=== PATIENT | male | born 1975 | race Caucasian/White ===

== ENCOUNTER 2016-11-12 17:35 | Emergency (ER) | payer MEDICAID, OTHER ==
[2016-11-12 18:24] LABS: MEAN CORPUSCULAR HEMOGLOBIN 30.7 pg (27.0-33.0); MEAN CORPUSCULAR HGB CONC 33.5 g/dl (32.0-36.5); MEAN CORPUSCULAR VOLUME 91.7 fl (80.0-96.0); RED CELL DISTRIBUTION WIDTH 12.1 % (11.5-14.5); WHITE BLOOD COUNT 14.6 K/mm3 (4.0-10.0)
[2016-11-12 18:39] LABS: AMPHETAMINES LEVEL URINE NEGATIVE (NEGATIVE); BENZODIAZEPINES URINE NEGATIVE (NEGATIVE); COCAINE METABOLITE URINE NEGATIVE (NEGATIVE); CONTROL LINE INT CTR LINE PRESENT; METHADONE URINE NEGATIVE (NEGATIVE); OPIATES URINE POSITIVE (NEGATIVE); TRICYCLIC ANTIDEPRESS URINE NEGATIVE (NEGATIVE)
[2016-11-12 18:56] LABS: ALBUMIN 4.4 GM/DL (3.2-5.2); ALBUMIN/GLOBULIN RATIO 1.47 (1.00-1.93); ALKALINE PHOSPHATASE 66 U/L (45-117); ALT/SGPT 20 U/L (12-78); ANION GAP 10 MEQ/L (8-16); AST/SGOT 10 U/L (15-37); BILIRUBIN,DIRECT < 0.1 MG/DL (0.0-0.2); BILIRUBIN,TOTAL 0.3 MG/DL (0.2-1.0); BLOOD UREA NITROGEN 18 MG/DL (7-18); CALCIUM LEVEL 8.6 MG/DL (8.5-10.1); CARBON DIOXIDE LEVEL 29 MEQ/L (21-32); CHLORIDE LEVEL 99 MEQ/L (98-107); CREATININE FOR GFR 1.16 MG/DL (0.70-1.30); GLOMERULAR FILTRATION RATE > 60.0 (>60); GLUCOSE, FASTING 116 MG/DL (70-105); POTASSIUM SERUM 4.1 MEQ/L (3.5-5.1); SODIUM LEVEL 138 MEQ/L (136-145); TOTAL PROTEIN 7.4 GM/DL (6.4-8.2)
[2016-11-12] MEDS ORDERED: QUEtiapine FUMARATE 100 MG TAB As Ordered ONE (20:47)
[2016-11-12] MEDS ORDERED: BACTRIM 160MG/800MG DS TAB As Ordered ONE (20:59)
--- NOTE | 2016-11-12 21:53 | EDDOCDS ---
Physician Documentation [facility] Name: Jewel Weaver Age: 41 yrs Sex: Male : 1975 Arrival Date: 11/12/2016 Time: 17:35 Bed BHU4 Private MD: Disposition: 11/12/16 20:56 Transfer ordered to [facility]. Diagnosis are Major depressive disorder, recurrent, Suicidal ideations. - Reason for transfer: Higher level of care. - Accepting physician is Dr Perez. - Condition is Stable. - Problem is an ongoing problem. - Symptoms have improved. Historical: - Allergies: Tylenol-Codeine #3 (Hives); - Home Meds: 1. Zoloft 50 mg Oral tab 1 tab once daily 2. anxiety med 7.5 mg daily 3. Seroquel 200 mg oral tab - PMHx: insomnia; Kidney stones; Anxiety; - PSHx: Appendectomy; - Social history: Smoking status: Patient uses tobacco products, heavy tobacco smoker. Patient uses street drugs, marijuana, No barriers to communication noted, The patient speaks fluent Lithuanian. - Family history: No immediate family members are acutely ill. - : The pt / caregiver states he / she is not on anticoagulants. Home medication list is obtained from the patient. - Exposure Risk Screening:: None identified. Vital Signs: 11/12 17:54 BP 147 / 100; Pulse 68; Resp 17; Temp 97.2; Pulse Ox 100% ; Weight 63.5 kg / 139.99 mb9 lbs; Height 6 ft. 1 in. (185.42 cm); Pain 0/10; 21:04 BP 147 / 97; Pulse 67; Resp 18; Temp 97.2(O); Pulse Ox 100% on R/A; Pain 0/10; rw1 21:49 BP 149 / 63; Pulse 78; Resp 17; Temp 96.8; Pulse Ox 96% ; mb9 17:54 Body Mass Index 18.47 (63.50 kg, 185.42 cm) mb9 MDM: 17:58 Consult PFS/PSA/Chair Car Driver ordered. sd1 17:58 Consult PFS/PSA/Chair Car Driver: Patient's case requires discussion with on-call sd1 Psychiatrist ordered. 17:58 PSA/PFS to call Nursing Reimbursement Representative, to enter patient data on [place] Safe Act if patient sd1 involuntarily admitted or transferred for SI or HI ordered. 17:58 Confirm accurate psychiatric medication list and times of last dosage ordered. sd1 17:58 Detain Pt Until Medically/PFS Cleared ordered. sd1 17:59 Acetaminophen Level Ordered. EDMS 17:59 Basic Metabolic Profile Ordered. EDMS 17:59 Complete Blood Count Ordered. EDMS 17:59 Drug Eval Toxicology ED Only Ordered. EDMS 17:59 Ethyl Alcohol (ethanol) Ordered. EDMS 17:59 Liver Profile Ordered. EDMS 18:00 Salicylate Level Ordered. EDMS 18:00 Thyroid Stimulating Hormone Ordered. EDMS 18:49 Other: Suicide note was scanned into [employer] and attached to record. jl 18:52 Complete Blood Count Reviewed. sd1 18:52 Drug Eval Toxicology ED Only Reviewed. sd1 18:54 UA Ordered. EDMS 18:54 Urine Culture Ordered. EDMS 19:15 Consult PFS/PSA/Chair Car Driver complete. ac 19:15 Consult PFS/PSA/Chair Car Driver: Patient's case requires discussion with on-call ac Psychiatrist complete. 19:36 PSA/PFS to call Nursing Reimbursement Representative, to enter patient data on [facility] Safe Act if patient jfb involuntarily admitted or transferred for SI or HI complete. 20:45 SEROquel 200 mg PO once ordered. rw1 20:45 Financial registration complete. gjb 20:48 Acetaminophen Level Reviewed. cs11 20:48 Basic Metabolic Profile Reviewed. cs11 20:48 Liver Profile Reviewed. cs11 20:48 Salicylate Level Reviewed. cs11 20:48 Thyroid Stimulating Hormone Reviewed. cs11 20:48 UA Reviewed. cs11 20:48 Ethyl Alcohol (ethanol) Reviewed. cs11 20:50 Trimethoprim-Sulfamethoxazole 160 mg-800 mg (DS) 1 tabs PO once ordered. cs11 21:12 [facility] Payment Agreement was scanned into [employer] and attached to record. gjb 21:15 E Legal paperwork was scanned into [employer] and attached to record. jfb Administered Medications: 20:49 Drug: SEROquel 200 mg Route: PO; rw1 21:47 Follow up: Response: No Adverse Reaction rw1 21:04 Drug: Trimethoprim-Sulfamethoxazole 1 tabs [sulfamethoxazole 800 mg-trimethoprim 160 mg rw1 tablet (1 tabs)] Route: PO; 21:47 Follow up: Response: No Adverse Reaction rw1 Signatures: Dispatcher [employer] Amanda Lemno MD MD sd1 Higinio Amor, PSA PSA Kam Welch, PSA PSA Kai Martínez LPN LPN rw1 Irais Hay, PSA PSA Shakeel Oliva DO DO cs11 Barney BrewsterRN RN mb9 Celia Casas The chart was reviewed and I authenticate all verbal orders and agree with the evaluation and treatment provided.Corrections: (The following items were deleted from the chart) 20:45 17:54 Home Meds: Seroquel 100 mg Oral tab nightly; mb9 rw1 Attachments: 21:12 [facility] Payment Agreement jordan MTDD
--- NOTE | 2016-11-12 21:53 | EDDOCDS ---
Nurse's Notes [facility] Name: Jewel Weaver Age: 41 yrs Sex: Male : 1975 Arrival Date: 11/12/2016 Time: 17:35 Bed [facility] Private MD: Diagnosis: Major depressive disorder, recurrent;Suicidal ideations Presentation: 11/12 17:50 Presenting complaint: Patient states: "I've been really depressed lately. I took a mb9 bunch of my dads luis last week and today I went and picked up my mom after she had surgery and my dad and I got into it about the pills. So I went in the garage and tied up a rope. The plasma table operator got involved because I put a message on facebook and one of my friends came and found me". [facility] reports pt vomited x1 en route. pt reports a history of kidney stones and that he has been vomiting all day. Mental Health Triage Level: Level 2: The patient displays active suicidal ideations. The patient was brought to the ED for evaluation because of a legal pickup order. Adult Sepsis Screening: The patient does not have new or worsening altered mentation. Patient's respiratory rate is less than 22. Systolic blood pressure is greater than 100. Patient has a qSOFA score of 0- Negative Sepsis Screen. Suicide/Homicide risk assessment- The patient admits to and/or has been reported to be having suicidal ideations. Status: Patient is not a nursing services manager or dependent. Transition of care: patient was not received from another setting of care. 17:50 Acuity: EUN Level 3 mb9 17:50 Method Of Arrival: Police Car mb9 Triage Assessment: 17:54 General: Appears in no apparent distress, Behavior is appropriate for age, cooperative. mb9 Pain: Denies pain. HIV screening NA for this visit Offered previously. The patient is triaged at the bedside. See Assessment in Nurses Notes section of ED record. Neurological: Level of Consciousness is awake, alert, Oriented to person, place, time. Respiratory: Airway is patent Respiratory effort is even, unlabored. GI: Reports nausea. Derm: Bruising that is dark purple, on right wrist and left wrist pt appears to have bruising and indentations to bilateral wrists. pt states, "That must be from the cuffs". . Historical: - Allergies: Tylenol-Codeine #3 (Hives); - Home Meds: 1. Zoloft 50 mg Oral tab 1 tab once daily 2. anxiety med 7.5 mg daily 3. Seroquel 200 mg oral tab - PMHx: insomnia; Kidney stones; Anxiety; - PSHx: Appendectomy; - Social history: Smoking status: Patient uses tobacco products, heavy tobacco smoker. Patient uses street drugs, marijuana, No barriers to communication noted, The patient speaks fluent Upper Sorbian. - Family history: No immediate family members are acutely ill. - : The pt / caregiver states he / she is not on anticoagulants. Home medication list is obtained from the patient. - Exposure Risk Screening:: None identified. Screenin:49 Screening information is obtained from the patient. Fall risk: No risks identified. mb9 Assistance ADL's: requires no assistance with activities of daily living. Abuse/DV Screen: The patient / caregiver reports he/she is: not in a situation that causes fear, pain or injury. Nutritional screening: No deficits noted. Advance Directives: There is no active DNR order. home support is adequate. Assessment: 20:00 General: Appears in no apparent distress, comfortable, Behavior is appropriate for age, rw1 cooperative, pleasant. Pain: Denies pain. Neurological: Level of Consciousness is awake, alert, obeys commands, Oriented to person, place, time. Respiratory: Airway is patent Respiratory effort is even, unlabored. Derm: Skin is pink, warm & dry. normal. 21:04 Reassessment: Patient appears in no apparent distress at this time. Patient denies pain rw1 at this time. awake resting on stretcher, safety maintained will monitor.. 21:49 General: Appears comfortable, Behavior is cooperative. Respiratory: Airway is patent mb9 Respiratory effort is even, unlabored. Mental Health Eval: 18:37 Mental health consult is initiated at 18:15. Status: The patient is not a nursing services manager or dependent. [facility] Behavioral Health: The patient is not an established patient of [facility] Behavioral Health. Referral Information: Evaluation referral is generated by a police agency: [employer] on . The patient was referred for evaluation because Pt wrote facebook post stating "tonight's the night I love you all goodbye for now, see everyone on the other side". Pt was found in the garage by his father with a rope tied to a car lift and a chair next to it in the process of tying a loop in the rope. Subjective: The patients chief complaint is I've been really depressed, probably since my brother of an MS in 2007. I moved back here from [place] a few months after. was working until last year but it was 110 miles round trip. 'm 41, unemployed and live with my parents, what's not to be depressed about? . Delusions are denied. Patient's mood is depressed, Hallucinations are denied. Mental Health history: abusing prescription drugs. Mental Health Admissions: None. Current Outpatient Mental Health Services: None. Current living environment is The patient currently lives with his / her parents, . Patient presents to Emergency Department with the following symptoms within the past 2 weeks: depressed mood, drug abuse. Substance abuse: Patient uses benzodiazepines 2-4 xanax daily that he takes from his parents. Patient uses marijuana Patient uses opiates Type Used: percocet 2 today. Mental status exam: Patients appearance is appropriate, Patient's behavior is cooperative, Speech is normal. Affect is appropriate. Mood is depressed. Hallucinations are denied. Appetite is normal. Memory is good. Energy level is normal. Content of thought is normal. Thought process is intact. Cognitive level is oriented to person, place, time and situation Patient's insight is poor. Judgement is poor. Rapport with interviewer is good. Suicidal Ideation present with a plan to kill self by hanging. Homicidal ideation is not present. Disposition: Medically cleared for disposition by Amanda Busby MD. [facility] Admission Criteria: The patient has had a suicide attempt in the recent past. pt had rope around vehicle lift, was in process of tying loop when father entered garage. 19:08 Legal Status: Patient's legal status will be [employer] [facility] [employer] admission: ac 9.37. DSM-V Differential Diagnosis: Unspecified Depressive Disorder (F32.9). Narrative: Pt was brought to ED by [facility] after sending facebook post saying "goodbye for now", was found by father in garage with rope hanging from vehicle lift. Pt states he has been stealing xanax from his parents, went through 60 pills of his father's in 1-2 weeks. Pt states his mother came home today following an unknown cardiac problem, he and father got into argument. Pt states at one point his father said "You aren't my son" at which time pt went to garage and tied rope. Pt states his brother in 2007 and he has been depressed since then. Pt admits that he was going to kill himself, is unable to CFS at this time. Pt denies ETOH use, no AH/VH or delusions. Pt reports chronic insomnia, appetite is unchanged, concentration is okay. Pt states preferred pharmacy is: [facility]. 19:30 Awaiting: Hospital acceptance for transfer. Chart has been faxed to [facility] for review. jl 21:08 Narrative: PT has been accepted to [facility] will call with pickling drum operator time. [facility] Vital Signs: 17:54 BP 147 / 100; Pulse 68; Resp 17; Temp 97.2; Pulse Ox 100% ; Weight 63.5 kg; Height 6 mb9 ft. 1 in. (185.42 cm); Pain 0/10; 21:04 BP 147 / 97; Pulse 67; Resp 18; Temp 97.2(O); Pulse Ox 100% on R/A; Pain 0/10; rw1 21:49 BP 149 / 63; Pulse 78; Resp 17; Temp 96.8; Pulse Ox 96% ; mb9 17:54 Body Mass Index 18.47 (63.50 kg, 185.42 cm) 9 Vitals: 17:54 Log In time N/A- police car arrival. mb9 ED Course: 17:36 Patient visited by Shawna Hill, Reg. gb 17:36 Patient moved to Waiting 17:49 Patient moved to [address] 17:49 Pt greeted and oriented to ED. Patient advised of names of staff involved in care, dpm location of call bernabe, wait times and NPO status. Patient has correct armband on for positive identification. Placed in psych safe attire. Security observing. Property removed, inventory done, secured in belongings bag- placed in locked locker. Placed in locker 4. Psych Safety Check: Location: Psych Room. Visual Assessment: Cooperative. 17:50 Amanda Busby MD is Attending Physician. sd1 17:50 Patient visited by Amanda Busby MD. sd1 17:53 Triage Initiated mb9 17:57 Patient visited by Shashank Luu. dpm 18:18 Patient visited by Shashank Luu. dpm 18:37 Patient visited by Shashank Luu. dpm 18:49 Other: Suicide note was scanned into [employer] and attached to record. jl 18:53 Patient visited by Shashank Luu. dpm 19:05 Kai Jaramillo LPN is Primary Nurse. rw1 19:07 Patient visited by Shashank Luu. dpm 19:14 Attending Physician role handed off by Amanda Busby MD cs11 19:14 Shakeel Bello DO is Attending Physician. cs11 19:28 Patient visited by Pranay Okeefe. tr 19:58 Patient visited by Pranay Okeefe. tr 20:16 Patient visited by Pranay Okeefe. tr 20:32 Patient visited by Pranay Okeefe. tr 20:46 Patient visited by Pranay Okeefe. tr 21:01 Patient visited by Pranay Okeefe. tr 21:12 [facility] Payment Agreement was scanned into [employer] and attached to record. gjb 21:15 Patient visited by Pranay Okeefe. tr 21:15 [facility] Legal paperwork was scanned into [employer] and attached to record. jfb 21:47 Patient visited by Pranay Okeefe. tr 21:49 The patient / caregiver is instructed regarding the plan of care and ED course. mb9 21:49 No IV's were initiated during this patient's visit. No procedures done that require mb9 assistance. Administered Medications: 20:49 Drug: SEROquel 200 mg Route: PO; rw1 21:47 Follow up: Response: No Adverse Reaction rw1 21:04 Drug: Trimethoprim-Sulfamethoxazole 1 tabs [sulfamethoxazole 800 mg-trimethoprim 160 mg rw tablet (1 tabs)] Route: PO; 21:47 Follow up: Response: No Adverse Reaction rw Attachments: 21:15 [facility] Legal paperwork jfb Order Results: Lab Order: Acetaminophen Level; SPEC'M 11/12/16 18:10 Test: ACETAMINOPHEN LEVEL; Value: < 2.0; Range: 10.0-30.0; Abnormal: Below low normal; Units: UG/ML; Status: F Lab Order: Basic Metabolic Profile; [facility] 11/12/16 18:10 Test: GLUCOSE, FASTING; Value: 116; Range: 70-105; Abnormal: Above high normal; Units: MG/DL; Status: F Test: BLOOD UREA NITROGEN; Value: 18; Range: 7-18; Units: MG/DL; Status: F Test: CREATININE FOR GFR; Value: 1.16; Range: 0.70-1.30; Units: MG/DL; Status: F Test: GLOMERULAR FILTRATION RATE; Value: > 60.0; Range: >60; Status: F Test: SODIUM LEVEL; Value: 138; Range: 136-145; Units: MEQ/L; Status: F Test: POTASSIUM SERUM; Value: 4.1; Range: 3.5-5.1; Units: MEQ/L; Status: F Test: CHLORIDE LEVEL; Value: 99; Range: 98-107; Units: MEQ/L; Status: F Test: CARBON DIOXIDE LEVEL; Value: 29; Range: 21-32; Units: MEQ/L; Status: F Test: ANION GAP; Value: 10; Range: 8-16; Units: MEQ/L; Status: F Test: CALCIUM LEVEL; Value: 8.6; Range: 8.5-10.1; Units: MG/DL; Status: F Test Note: ; Units are mL/min/1.73 m2 Chronic Kidney Disease Staging per NKF: Stage I & II GFR >=60 Normal to Mildly Decreased Stage III GFR 30-59 Moderately Decreased Stage IV GFR 15-29 Severely Decreased Stage V GFR <15 Very Little GFR Left ESRD GFR <15 on CUSTOMER ORDER CLERK Lab Order: Complete Blood Count; [facility] 11/12/16 18:10 Test: WHITE BLOOD COUNT; Value: 14.6; Range: 4.0-10.0; Abnormal: Above high normal; Units: K/mm3; Status: F Test: RED BLOOD COUNT; Value: 4.81; Range: 4.30-6.10; Units: M/mm3; Status: F Test: HEMOGLOBIN; Value: 14.8; Range: 14.0-18.0; Units: g/dl; Status: F Test: HEMATOCRIT; Value: 44.1; Range: 42.0-52.0; Units: %; Status: F Test: MEAN CORPUSCULAR VOLUME; Value: 91.7; Range: 80.0-96.0; Units: fl; Status: F Test: MEAN CORPUSCULAR HEMOGLOBIN; Value: 30.7; Range: 27.0-33.0; Units: pg; Status: F Test: MEAN CORPUSCULAR HGB CONC; Value: 33.5; Range: 32.0-36.5; Units: g/dl; Status: F Test: RED CELL DISTRIBUTION WIDTH; Value: 12.1; Range: 11.5-14.5; Units: %; Status: F Test: PLATELET COUNT, AUTOMATED; Value: 240; Range: 150-450; Units: k/mm3; Status: F Lab Order: Drug Eval Toxicology ED Only; SPEC'M 11/12/16 18:12 Test: AMPHETAMINES LEVEL URINE; Value: NEGATIVE; Range: NEGATIVE; Status: F Test: BARBITURATES URINE; Value: NEGATIVE; Range: NEGATIVE; Status: F Test: BENZODIAZEPINES URINE; Value: NEGATIVE; Range: NEGATIVE; Status: F Test: CANNABINOIDS URINE; Value: POSITIVE; Range: NEGATIVE; Abnormal: Above high normal; Status: F Test: COCAINE METABOLITE URINE; Value: NEGATIVE; Range: NEGATIVE; Status: F Test: METHADONE URINE; Value: NEGATIVE; Range: NEGATIVE; Status: F Test: OPIATES URINE; Value: POSITIVE; Range: NEGATIVE; Abnormal: Above high normal; Status: F Test: TRICYCLIC ANTIDEPRESS URINE; Value: NEGATIVE; Range: NEGATIVE; Status: F Test Note: ; FALSE POSITIVE RESULTS CAN BE CAUSED BY THE USE OF PANTOPRAZOLE (PROTONIX). Lab Order: Ethyl Alcohol (ethanol); SPEC'M 11/12/16 18:10 Test: ETHYL ALCOHOL (ETHANOL); Value: < 0.003; Range: 0.000-0.010; Units: %; Status: F Lab Order: Liver Profile; SPEC'M 11/12/16 18:10 Test: AST/SGOT; Value: 10; Range: 15-37; Abnormal: Below low normal; Units: U/L; Status: F Test: ALT/SGPT; Value: 20; Range: 12-78; Units: U/L; Status: F Test: ALKALINE PHOSPHATASE; Value: 66; Range: 45-117; Units: U/L; Status: F Test: BILIRUBIN,TOTAL; Value: 0.3; Range: 0.2-1.0; Units: MG/DL; Status: F Test: BILIRUBIN,DIRECT; Value: < 0.1; Range: 0.0-0.2; Units: MG/DL; Status: F Test: TOTAL PROTEIN; Value: 7.4; Range: 6.4-8.2; Units: GM/DL; Status: F Test: ALBUMIN; Value: 4.4; Range: 3.2-5.2; Units: GM/DL; Status: F Test: ALBUMIN/GLOBULIN RATIO; Value: 1.47; Range: 1.00-1.93; Status: F Lab Order: Salicylate Level; SPEC'M 11/12/16 18:10 Test: SALICYLATE LEVEL; Value: < 1.7; Range: 5.0-30.0; Abnormal: Below low normal; Units: MG/DL; Status: F Lab Order: Thyroid Stimulating Hormone; SPEC'M 11/12/16 18:10 Test: THYROID STIMULATING HORMONE; Value: 4.780; Range: 0.358-3.740; Abnormal: Above high normal; Units: uIU/ML; Status: F Lab Order: UA; SPEC'M 11/12/16 18:10 Test: APPEARANCE, URINE; Value: HAZY; Range: CLEAR; Status: F Test: COLOR, URINE; Value: YELLOW; Range: YELLOW; Status: F Test: PH,URINE; Value: 5.0; Range: 5.0-9.0; Units: UNITS; Status: F Test: SPECIFIC GRAVITY URINE AUTO; Value: 1.021; Range: 1.002-1.035; Status: F Test: PROTEIN, URINE AUTO; Value: NEGATIVE; Range: NEGATIVE; Units: mg/dL; Status: F Test: GLUCOSE, URINE (UA) AUTO; Value: NEGATIVE; Range: NEGATIVE; Units: mg/dL; Status: F Test: KETONE, URINE AUTO; Value: TRACE; Range: NEGATIVE; Abnormal: Above high normal; Units: mg/dL; Status: F Test: UROBILINOGEN, URINE AUTO; Value: 0.2; Range: 0.0-2.0; Units: mg/dL; Status: F Test: BILIRUBIN, URINE AUTO; Value: NEGATIVE; Range: NEGATIVE; Status: F Test: NITRITE, URINE AUTO; Value: NEGATIVE; Range: NEGATIVE; Status: F Test: LEUKOCYTE ESTERASE, URINE AUTO; Value: NEGATIVE; Range: NEGATIVE; Status: F Test: BLOOD, URINE BLOOD; Value: NEGATIVE; Range: NEGATIVE; Status: F Test: WBC, URINE AUTO; Value: 6; Range: 0-3; Abnormal: Above high normal; Units: /HPF; Status: F Test: RBC, URINE AUTO; Value: 2; Range: 0-3; Units: /HPF; Status: F Test: BACTERIA, URINE AUTO; Value: NEGATIVE; Range: NEGATIVE; Status: F Test: SQUAMOUS EPITHELIAL CELL UR AU; Value: 0; Range: 0-6; Units: /HPF; Status: F Test: MUCUS, URINE; Value: SMALL; Range: NEGATIVE; Status: F Test: HYALINE CAST, URINE AUTO; Value: 0; Range: 0-1; Units: /LPF; Status: F Test: URIC ACID CRYSTALS; Value: MODERATE; Range: NONE; Status: F Outcome: 20:56 ER care complete, transfer ordered by Provider. cs11 21:02 Admission hand-off: Report called to Lori Bey RN. All information relayed. All mb9 questions answered. 21:49 Discharge Assessment: Patient awake, alert and oriented x 3. No cognitive and/or mb9 functional deficits noted. Patient verbalized understanding of disposition instructions. patient administered narcotics - no. The following High Risk Discharge criteria are identified: None. Transferred to [facility]. by EMS ground [facility] ambulance report to accompanying personnel Genevieve Adamson. Condition: good Condition: stable Condition: improved. No special radiology studies were completed. 21:52 Patient left the ED. mb9 Signatures: Amanda Busby MD MD sd1 Higinio Amor, PSA PSA Kam Welch, PSA PSA Shawna Muniz, Anil Reg teofilo Okeefe, Kai Rojo LPN CLAY TRANSPORTER rw1 Irais Hay, PSA PSA jfShashank Brown dpShakeel Brown DO DO cs11 Barney Brewster RN RN mb9 Celia Casas Corrections: (The following items were deleted from the chart) 20:45 17:54 Home Meds: Seroquel 100 mg Oral tab nightly; mb9 rw1 MTDD
--- NOTE | 2016-11-14 22:53 | EDDOCDS ---
Physician Documentation [facility] Name: Jewel Weaver Age: 41 yrs Sex: Male : 1975 Arrival Date: 11/12/2016 Time: 17:35 Bed [id number] Private MD: Disposition: 11/12/16 20:56 Transfer ordered to [facility]. Diagnosis are Major depressive disorder, recurrent, Suicidal ideations. - Reason for transfer: Higher level of care. - Accepting physician is Dr Perez. - Condition is Stable. - Problem is an ongoing problem. - Symptoms have improved. Historical: - Allergies: Tylenol-Codeine #3 (Hives); - Home Meds: 1. Zoloft 50 mg Oral tab 1 tab once daily 2. anxiety med 7.5 mg daily 3. Seroquel 200 mg oral tab - PMHx: insomnia; Kidney stones; Anxiety; - PSHx: Appendectomy; - Social history: Smoking status: Patient uses tobacco products, heavy tobacco smoker. Patient uses street drugs, marijuana, No barriers to communication noted, The patient speaks fluent East Timorese. - Family history: No immediate family members are acutely ill. - : The pt / caregiver states he / she is not on anticoagulants. Home medication list is obtained from the patient. - Exposure Risk Screening:: None identified. Vital Signs: 11/12 17:54 BP 147 / 100; Pulse 68; Resp 17; Temp 97.2; Pulse Ox 100% ; Weight 63.5 kg / 139.99 mb9 lbs; Height 6 ft. 1 in. (185.42 cm); Pain 0/10; 21:04 BP 147 / 97; Pulse 67; Resp 18; Temp 97.2(O); Pulse Ox 100% on R/A; Pain 0/10; rw1 21:49 BP 149 / 63; Pulse 78; Resp 17; Temp 96.8; Pulse Ox 96% ; mb9 17:54 Body Mass Index 18.47 (63.50 kg, 185.42 cm) mb9 MDM: 17:58 Consult PFS/PSA/Contract Processor ordered. sd1 17:58 Consult PFS/PSA/Contract Processor: Patient's case requires discussion with on-call sd1 Psychiatrist ordered. 17:58 PSA/PFS to call Nursing Grain Miller Helper, to enter patient data on [place] Safe Act if patient sd1 involuntarily admitted or transferred for SI or HI ordered. 17:58 Confirm accurate psychiatric medication list and times of last dosage ordered. sd1 17:58 Detain Pt Until Medically/PFS Cleared ordered. sd1 17:59 Acetaminophen Level Ordered. EDMS 17:59 Basic Metabolic Profile Ordered. EDMS 17:59 Complete Blood Count Ordered. EDMS 17:59 Drug Eval Toxicology ED Only Ordered. EDMS 17:59 Ethyl Alcohol (ethanol) Ordered. EDMS 17:59 Liver Profile Ordered. EDMS 18:00 Salicylate Level Ordered. EDMS 18:00 Thyroid Stimulating Hormone Ordered. EDMS 18:49 Other: Suicide note was scanned into [employer] and attached to record. jl 18:52 Complete Blood Count Reviewed. sd1 18:52 Drug Eval Toxicology ED Only Reviewed. sd1 18:54 UA Ordered. EDMS 18:54 Urine Culture Ordered. EDMS 19:15 Consult PFS/PSA/Contract Processor complete. ac 19:15 Consult PFS/PSA/Contract Processor: Patient's case requires discussion with on-call ac Psychiatrist complete. 19:36 PSA/PFS to call Nursing Grain Miller Helper, to enter patient data on [facility] Safe Act if patient jfb involuntarily admitted or transferred for SI or HI complete. 20:45 SEROquel 200 mg PO once ordered. rw1 20:45 Financial registration complete. gjb 20:48 Acetaminophen Level Reviewed. cs11 20:48 Basic Metabolic Profile Reviewed. cs11 20:48 Liver Profile Reviewed. cs11 20:48 Salicylate Level Reviewed. cs11 20:48 Thyroid Stimulating Hormone Reviewed. cs11 20:48 UA Reviewed. cs11 20:48 Ethyl Alcohol (ethanol) Reviewed. cs11 20:50 Trimethoprim-Sulfamethoxazole 160 mg-800 mg (DS) 1 tabs PO once ordered. cs11 21:12 [facility] Payment Agreement was scanned into [employer] and attached to record. gjb 21:15 [facility] Legal paperwork was scanned into [employer] and attached to record. jfb 11/13 10:59 T-Sheet-- Draft Copy was scanned into [employer] and attached to record. gb Administered Medications: 11/12 20:49 Drug: SEROquel 200 mg Route: PO; rw1 21:47 Follow up: Response: No Adverse Reaction rw1 21:04 Drug: Trimethoprim-Sulfamethoxazole 1 tabs [sulfamethoxazole 800 mg-trimethoprim 160 mg rw1 tablet (1 tabs)] Route: PO; 21:47 Follow up: Response: No Adverse Reaction rw1 Signatures: Dispatcher [employer] Amanda Lemon MD MD sd1 Higinio Amor, PSA PSA Kam Welch, PSA PSA Shawna Muniz, Reg Reg gb Kai Jaramillo,PROSPECT MANAGER PROSPECT MANAGER rw1 Irais Hay, PSA PSA jfShakeel Guidry, DO cs11 Barney BrewsterRN RN mb9 Celia Casas The chart was reviewed and I authenticate all verbal orders and agree with the evaluation and treatment provided.Corrections: (The following items were deleted from the chart) 20:45 17:54 Home Meds: Seroquel 100 mg Oral tab nightly; mb9 rw1 Attachments: 21:12 [facility] Payment Agreement gjb 11/13 10:59 T-Sheet-- Draft Copy Chart Complete MTDD
--- NOTE | 2016-11-14 22:53 | EDDOCDS ---
Nurse's Notes [facility] Name: Jewel Weaver Age: 41 yrs Sex: Male : 1975 Arrival Date: 11/12/2016 Time: 17:35 Bed [facility] Private MD: Diagnosis: Major depressive disorder, recurrent;Suicidal ideations Presentation: 11/12 17:50 Presenting complaint: Patient states: "I've been really depressed lately. I took a mb9 bunch of my dads luis last week and today I went and picked up my mom after she had surgery and my dad and I got into it about the pills. So I went in the garage and tied up a rope. The technologies division chair got involved because I put a message on facebook and one of my friends came and found me". [facility] reports pt vomited x1 en route. pt reports a history of kidney stones and that he has been vomiting all day. Mental Health Triage Level: Level 2: The patient displays active suicidal ideations. The patient was brought to the ED for evaluation because of a legal pickup order. Adult Sepsis Screening: The patient does not have new or worsening altered mentation. Patient's respiratory rate is less than 22. Systolic blood pressure is greater than 100. Patient has a qSOFA score of 0- Negative Sepsis Screen. Suicide/Homicide risk assessment- The patient admits to and/or has been reported to be having suicidal ideations. Status: Patient is not a assistant food service manager or dependent. Transition of care: patient was not received from another setting of care. 17:50 Acuity: EUN Level 3 mb9 17:50 Method Of Arrival: Police Car mb9 Triage Assessment: 17:54 General: Appears in no apparent distress, Behavior is appropriate for age, cooperative. mb9 Pain: Denies pain. HIV screening NA for this visit Offered previously. The patient is triaged at the bedside. See Assessment in Nurses Notes section of ED record. Neurological: Level of Consciousness is awake, alert, Oriented to person, place, time. Respiratory: Airway is patent Respiratory effort is even, unlabored. GI: Reports nausea. Derm: Bruising that is dark purple, on right wrist and left wrist pt appears to have bruising and indentations to bilateral wrists. pt states, "That must be from the cuffs". . Historical: - Allergies: Tylenol-Codeine #3 (Hives); - Home Meds: 1. Zoloft 50 mg Oral tab 1 tab once daily 2. anxiety med 7.5 mg daily 3. Seroquel 200 mg oral tab - PMHx: insomnia; Kidney stones; Anxiety; - PSHx: Appendectomy; - Social history: Smoking status: Patient uses tobacco products, heavy tobacco smoker. Patient uses street drugs, marijuana, No barriers to communication noted, The patient speaks fluent Chinese. - Family history: No immediate family members are acutely ill. - : The pt / caregiver states he / she is not on anticoagulants. Home medication list is obtained from the patient. - Exposure Risk Screening:: None identified. Screenin:49 Screening information is obtained from the patient. Fall risk: No risks identified. mb9 Assistance ADL's: requires no assistance with activities of daily living. Abuse/DV Screen: The patient / caregiver reports he/she is: not in a situation that causes fear, pain or injury. Nutritional screening: No deficits noted. Advance Directives: There is no active DNR order. home support is adequate. Assessment: 20:00 General: Appears in no apparent distress, comfortable, Behavior is appropriate for age, rw1 cooperative, pleasant. Pain: Denies pain. Neurological: Level of Consciousness is awake, alert, obeys commands, Oriented to person, place, time. Respiratory: Airway is patent Respiratory effort is even, unlabored. Derm: Skin is pink, warm & dry. normal. 21:04 Reassessment: Patient appears in no apparent distress at this time. Patient denies pain rw1 at this time. awake resting on stretcher, safety maintained will monitor.. 21:49 General: Appears comfortable, Behavior is cooperative. Respiratory: Airway is patent mb9 Respiratory effort is even, unlabored. Mental Health Eval: 18:37 Mental health consult is initiated at 18:15. Status: The patient is not a assistant food service manager or dependent. [facility] Behavioral Health: The patient is not an established patient of [facility] Behavioral Health. Referral Information: Evaluation referral is generated by a police agency: [employer] on . The patient was referred for evaluation because Pt wrote facebook post stating "tonight's the night I love you all goodbye for now, see everyone on the other side". Pt was found in the garage by his father with a rope tied to a car lift and a chair next to it in the process of tying a loop in the rope. Subjective: The patients chief complaint is I've been really depressed, probably since my brother of an OR in 2007. I moved back here from [place] a few months after. was working until last year but it was 110 miles round trip. 'm 41, unemployed and live with my parents, what's not to be depressed about? . Delusions are denied. Patient's mood is depressed, Hallucinations are denied. Mental Health history: abusing prescription drugs. Mental Health Admissions: None. Current Outpatient Mental Health Services: None. Current living environment is The patient currently lives with his / her parents, . Patient presents to Emergency Department with the following symptoms within the past 2 weeks: depressed mood, drug abuse. Substance abuse: Patient uses benzodiazepines 2-4 xanax daily that he takes from his parents. Patient uses marijuana Patient uses opiates Type Used: percocet 2 today. Mental status exam: Patients appearance is appropriate, Patient's behavior is cooperative, Speech is normal. Affect is appropriate. Mood is depressed. Hallucinations are denied. Appetite is normal. Memory is good. Energy level is normal. Content of thought is normal. Thought process is intact. Cognitive level is oriented to person, place, time and situation Patient's insight is poor. Judgement is poor. Rapport with interviewer is good. Suicidal Ideation present with a plan to kill self by hanging. Homicidal ideation is not present. Disposition: Medically cleared for disposition by Amanda Busby MD. [facility] Admission Criteria: The patient has had a suicide attempt in the recent past. pt had rope around vehicle lift, was in process of tying loop when father entered garage. 19:08 Legal Status: Patient's legal status will be [employer] admission: ac 9.37. DSM-V Differential Diagnosis: Unspecified Depressive Disorder (F32.9). Narrative: Pt was brought to ED by [facility] after sending facebook post saying "goodbye for now", was found by father in garage with rope hanging from vehicle lift. Pt states he has been stealing xanax from his parents, went through 60 pills of his father's in 1-2 weeks. Pt states his mother came home today following an unknown cardiac problem, he and father got into argument. Pt states at one point his father said "You aren't my son" at which time pt went to garage and tied rope. Pt states his brother in 2007 and he has been depressed since then. Pt admits that he was going to kill himself, is unable to CFS at this time. Pt denies ETOH use, no AH/VH or delusions. Pt reports chronic insomnia, appetite is unchanged, concentration is okay. Pt states preferred pharmacy is: [facility]. 19:30 Awaiting: Hospital acceptance for transfer. Chart has been faxed to PSYCHIATRIC for review. jl 21:08 Narrative: PT has been accepted to [facility] will call with apple picker time. [facility] Vital Signs: 17:54 BP 147 / 100; Pulse 68; Resp 17; Temp 97.2; Pulse Ox 100% ; Weight 63.5 kg; Height 6 mb9 ft. 1 in. (185.42 cm); Pain 0/10; 21:04 BP 147 / 97; Pulse 67; Resp 18; Temp 97.2(O); Pulse Ox 100% on R/A; Pain 0/10; rw1 21:49 BP 149 / 63; Pulse 78; Resp 17; Temp 96.8; Pulse Ox 96% ; mb9 17:54 Body Mass Index 18.47 (63.50 kg, 185.42 cm) 9 Vitals: 17:54 Log In time N/A- police car arrival. mb9 ED Course: 17:36 Patient visited by Shawna Hill, Reg. gb 17:36 Patient moved to Waiting 17:49 Patient moved to [address] 17:49 Pt greeted and oriented to ED. Patient advised of names of staff involved in care, dpm location of call bernabe, wait times and NPO status. Patient has correct armband on for positive identification. Placed in psych safe attire. Security observing. Property removed, inventory done, secured in belongings bag- placed in locked locker. Placed in locker 4. Psych Safety Check: Location: Psych Room. Visual Assessment: Cooperative. 17:50 Amanda Busby MD is Attending Physician. sd1 17:50 Patient visited by Amanda Busby MD. sd1 17:53 Triage Initiated mb9 17:57 Patient visited by Shashank Luu. dpm 18:18 Patient visited by Shashank Luu. dpm 18:37 Patient visited by Shashank Luu. dpm 18:49 Other: Suicide note was scanned into [email or web address] and attached to record. jl 18:53 Patient visited by Shashank Luu. dpm 19:05 Kai Jaramillo LPN is Primary Nurse. rw1 19:07 Patient visited by Shashank Luu. dpm 19:14 Attending Physician role handed off by Amanda Busby MD cs11 19:14 Shakeel Bello DO is Attending Physician. cs11 19:28 Patient visited by Pranay Okeefe. tr 19:58 Patient visited by Pranay Okeefe. tr 20:16 Patient visited by Pranay Okeefe. tr 20:32 Patient visited by Pranay Okeefe. tr 20:46 Patient visited by Pranay Okeefe. tr 21:01 Patient visited by Pranay Okeefe. tr 21:12 [facility] Payment Agreement was scanned into [email or web address] and attached to record. gjb 21:15 Patient visited by Pranay Okeefe. tr 21:15 [facility] Legal paperwork was scanned into [email or web address] and attached to record. jfb 21:47 Patient visited by Pranay Okeefe. tr 21:49 The patient / caregiver is instructed regarding the plan of care and ED course. mb9 21:49 No IV's were initiated during this patient's visit. No procedures done that require mb9 assistance. 11/13 10:59 T-Sheet-- Draft Copy was scanned into [email or web address] and attached to record. gb Administered Medications: 11/12 20:49 Drug: SEROquel 200 mg Route: PO; rw1 21:47 Follow up: Response: No Adverse Reaction rw1 21:04 Drug: Trimethoprim-Sulfamethoxazole 1 tabs [sulfamethoxazole 800 mg-trimethoprim 160 mg rw1 tablet (1 tabs)] Route: PO; 21:47 Follow up: Response: No Adverse Reaction rw1 Attachments: 21:15 [facility] Legal paperwork jfb Order Results: Lab Order: Acetaminophen Level; SPEC'M 11/12/16 18:10 Test: ACETAMINOPHEN LEVEL; Value: < 2.0; Range: 10.0-30.0; Abnormal: Below low normal; Units: UG/ML; Status: F Lab Order: Basic Metabolic Profile; [facility] 11/12/16 18:10 Test: GLUCOSE, FASTING; Value: 116; Range: 70-105; Abnormal: Above high normal; Units: MG/DL; Status: F Test: BLOOD UREA NITROGEN; Value: 18; Range: 7-18; Units: MG/DL; Status: F Test: CREATININE FOR GFR; Value: 1.16; Range: 0.70-1.30; Units: MG/DL; Status: F Test: GLOMERULAR FILTRATION RATE; Value: > 60.0; Range: >60; Status: F Test: SODIUM LEVEL; Value: 138; Range: 136-145; Units: MEQ/L; Status: F Test: POTASSIUM SERUM; Value: 4.1; Range: 3.5-5.1; Units: MEQ/L; Status: F Test: CHLORIDE LEVEL; Value: 99; Range: 98-107; Units: MEQ/L; Status: F Test: CARBON DIOXIDE LEVEL; Value: 29; Range: 21-32; Units: MEQ/L; Status: F Test: ANION GAP; Value: 10; Range: 8-16; Units: MEQ/L; Status: F Test: CALCIUM LEVEL; Value: 8.6; Range: 8.5-10.1; Units: MG/DL; Status: F Test Note: ; Units are mL/min/1.73 m2 Chronic Kidney Disease Staging per NKF: Stage I & II GFR >=60 Normal to Mildly Decreased Stage III GFR 30-59 Moderately Decreased Stage IV GFR 15-29 Severely Decreased Stage V GFR <15 Very Little GFR Left ESRD GFR <15 on [employer] Lab Order: Complete Blood Count; [facility] 18:10 Test: WHITE BLOOD COUNT; Value: 14.6; Range: 4.0-10.0; Abnormal: Above high normal; Units: K/mm3; Status: F Test: RED BLOOD COUNT; Value: 4.81; Range: 4.30-6.10; Units: M/mm3; Status: F Test: HEMOGLOBIN; Value: 14.8; Range: 14.0-18.0; Units: g/dl; Status: F Test: HEMATOCRIT; Value: 44.1; Range: 42.0-52.0; Units: %; Status: F Test: MEAN CORPUSCULAR VOLUME; Value: 91.7; Range: 80.0-96.0; Units: fl; Status: F Test: MEAN CORPUSCULAR HEMOGLOBIN; Value: 30.7; Range: 27.0-33.0; Units: pg; Status: F Test: MEAN CORPUSCULAR HGB CONC; Value: 33.5; Range: 32.0-36.5; Units: g/dl; Status: F Test: RED CELL DISTRIBUTION WIDTH; Value: 12.1; Range: 11.5-14.5; Units: %; Status: F Test: PLATELET COUNT, AUTOMATED; Value: 240; Range: 150-450; Units: k/mm3; Status: F Lab Order: Drug Eval Toxicology ED Only; SPEC'M 11/12/16 18:12 Test: AMPHETAMINES LEVEL URINE; Value: NEGATIVE; Range: NEGATIVE; Status: F Test: BARBITURATES URINE; Value: NEGATIVE; Range: NEGATIVE; Status: F Test: BENZODIAZEPINES URINE; Value: NEGATIVE; Range: NEGATIVE; Status: F Test: CANNABINOIDS URINE; Value: POSITIVE; Range: NEGATIVE; Abnormal: Above high normal; Status: F Test: COCAINE METABOLITE URINE; Value: NEGATIVE; Range: NEGATIVE; Status: F Test: METHADONE URINE; Value: NEGATIVE; Range: NEGATIVE; Status: F Test: OPIATES URINE; Value: POSITIVE; Range: NEGATIVE; Abnormal: Above high normal; Status: F Test: TRICYCLIC ANTIDEPRESS URINE; Value: NEGATIVE; Range: NEGATIVE; Status: F Test Note: ; FALSE POSITIVE RESULTS CAN BE CAUSED BY THE USE OF PANTOPRAZOLE (PROTONIX). Lab Order: Ethyl Alcohol (ethanol); SPEC'M 11/12/16 18:10 Test: ETHYL ALCOHOL (ETHANOL); Value: < 0.003; Range: 0.000-0.010; Units: %; Status: F Lab Order: Liver Profile; SPEC'M 11/12/16 18:10 Test: AST/SGOT; Value: 10; Range: 15-37; Abnormal: Below low normal; Units: U/L; Status: F Test: ALT/SGPT; Value: 20; Range: 12-78; Units: U/L; Status: F Test: ALKALINE PHOSPHATASE; Value: 66; Range: 45-117; Units: U/L; Status: F Test: BILIRUBIN,TOTAL; Value: 0.3; Range: 0.2-1.0; Units: MG/DL; Status: F Test: BILIRUBIN,DIRECT; Value: < 0.1; Range: 0.0-0.2; Units: MG/DL; Status: F Test: TOTAL PROTEIN; Value: 7.4; Range: 6.4-8.2; Units: GM/DL; Status: F Test: ALBUMIN; Value: 4.4; Range: 3.2-5.2; Units: GM/DL; Status: F Test: ALBUMIN/GLOBULIN RATIO; Value: 1.47; Range: 1.00-1.93; Status: F Lab Order: Salicylate Level; SPEC 11/12/16 18:10 Test: SALICYLATE LEVEL; Value: < 1.7; Range: 5.0-30.0; Abnormal: Below low normal; Units: MG/DL; Status: F Lab Order: Thyroid Stimulating Hormone; SPEC 11/12/16 18:10 Test: THYROID STIMULATING HORMONE; Value: 4.780; Range: 0.358-3.740; Abnormal: Above high normal; Units: uIU/ML; Status: F Lab Order: UA; SPEC 11/12/16 18:10 Test: APPEARANCE, URINE; Value: HAZY; Range: CLEAR; Status: F Test: COLOR, URINE; Value: YELLOW; Range: YELLOW; Status: F Test: PH,URINE; Value: 5.0; Range: 5.0-9.0; Units: UNITS; Status: F Test: SPECIFIC GRAVITY URINE AUTO; Value: 1.021; Range: 1.002-1.035; Status: F Test: PROTEIN, URINE AUTO; Value: NEGATIVE; Range: NEGATIVE; Units: mg/dL; Status: F Test: GLUCOSE, URINE (UA) AUTO; Value: NEGATIVE; Range: NEGATIVE; Units: mg/dL; Status: F Test: KETONE, URINE AUTO; Value: TRACE; Range: NEGATIVE; Abnormal: Above high normal; Units: mg/dL; Status: F Test: UROBILINOGEN, URINE AUTO; Value: 0.2; Range: 0.0-2.0; Units: mg/dL; Status: F Test: BILIRUBIN, URINE AUTO; Value: NEGATIVE; Range: NEGATIVE; Status: F Test: NITRITE, URINE AUTO; Value: NEGATIVE; Range: NEGATIVE; Status: F Test: LEUKOCYTE ESTERASE, URINE AUTO; Value: NEGATIVE; Range: NEGATIVE; Status: F Test: BLOOD, URINE BLOOD; Value: NEGATIVE; Range: NEGATIVE; Status: F Test: WBC, URINE AUTO; Value: 6; Range: 0-3; Abnormal: Above high normal; Units: /HPF; Status: F Test: RBC, URINE AUTO; Value: 2; Range: 0-3; Units: /HPF; Status: F Test: BACTERIA, URINE AUTO; Value: NEGATIVE; Range: NEGATIVE; Status: F Test: SQUAMOUS EPITHELIAL CELL UR AU; Value: 0; Range: 0-6; Units: /HPF; Status: F Test: MUCUS, URINE; Value: SMALL; Range: NEGATIVE; Status: F Test: HYALINE CAST, URINE AUTO; Value: 0; Range: 0-1; Units: /LPF; Status: F Test: URIC ACID CRYSTALS; Value: MODERATE; Range: NONE; Status: F Lab Order: Urine Culture; SPEC'M 11/12/16 18:10 Test: URINE CULTURE; Value: <EXTERNAL COMMENT eCWMed> FULL REPORT IN LAB NOTES (eCW and Medent).; Status: F Test: URINE CULTURE; Value: URINE CULTURE RESULT NO GROWTH; Status: F Outcome: 11/12 20:56 ER care complete, transfer ordered by Provider. cs11 21:02 Admission hand-off: Report called to Lori Bey RN. All information relayed. All mb9 questions answered. 21:49 Discharge Assessment: Patient awake, alert and oriented x 3. No cognitive and/or mb9 functional deficits noted. Patient verbalized understanding of disposition instructions. patient administered narcotics - no. The following High Risk Discharge criteria are identified: None. Transferred to [facility]. by EMS ground [facility] ambulance report to accompanying personnel Genevieve Adamson. Condition: good Condition: stable Condition: improved. No special radiology studies were completed. 21:52 Patient left the ED. mb9 Signatures: Amanda Busby MD MD sd1 Higinio Amor PSA PSA Kam Welch PSA PSA Shawna Muniz, Reg Reg gb Sary, Pranay tr Kai Jaramillo,DATA COORDINATOR DATA COORDINATOR rw1 Irais Hay, EDITA PSA jfShashank Brown dpShakeel Brown, DO cs11 Barney Brewster,RN RN mb9 Celia Casas Corrections: (The following items were deleted from the chart) 20:45 17:54 Home Meds: Seroquel 100 mg Oral tab nightly; mb9 rw1 Chart Complete MTDD
--- NOTE | 2016-11-14 22:53 | EDDOCDS ---
Physician Documentation [facility] Name: Jewel Weaver Age: 41 yrs Sex: Male : 1975 Arrival Date: 11/12/2016 Time: 17:35 Bed BHU4 Private MD: Disposition: 11/12/16 20:56 Transfer ordered to [facility]. Diagnosis are Major depressive disorder, recurrent, Suicidal ideations. - Reason for transfer: Higher level of care. - Accepting physician is Dr Perez. - Condition is Stable. - Problem is an ongoing problem. - Symptoms have improved. Historical: - Allergies: Tylenol-Codeine #3 (Hives); - Home Meds: 1. Zoloft 50 mg Oral tab 1 tab once daily 2. anxiety med 7.5 mg daily 3. Seroquel 200 mg oral tab - PMHx: insomnia; Kidney stones; Anxiety; - PSHx: Appendectomy; - Social history: Smoking status: Patient uses tobacco products, heavy tobacco smoker. Patient uses street drugs, marijuana, No barriers to communication noted, The patient speaks fluent Venezuelan. - Family history: No immediate family members are acutely ill. - : The pt / caregiver states he / she is not on anticoagulants. Home medication list is obtained from the patient. - Exposure Risk Screening:: None identified. Vital Signs: 11/12 17:54 BP 147 / 100; Pulse 68; Resp 17; Temp 97.2; Pulse Ox 100% ; Weight 63.5 kg / 139.99 mb9 lbs; Height 6 ft. 1 in. (185.42 cm); Pain 0/10; 21:04 BP 147 / 97; Pulse 67; Resp 18; Temp 97.2(O); Pulse Ox 100% on R/A; Pain 0/10; rw1 21:49 BP 149 / 63; Pulse 78; Resp 17; Temp 96.8; Pulse Ox 96% ; mb9 17:54 Body Mass Index 18.47 (63.50 kg, 185.42 cm) mb9 MDM: 17:58 Consult PFS/PSA/Sr. Strategic Sourcing Manager ordered. sd1 17:58 Consult PFS/PSA/Sr. Strategic Sourcing Manager: Patient's case requires discussion with on-call sd1 Psychiatrist ordered. 17:58 PSA/PFS to call Nursing Radiology Physician Assistant, to enter patient data on [place] Safe Act if patient sd1 involuntarily admitted or transferred for SI or HI ordered. 17:58 Confirm accurate psychiatric medication list and times of last dosage ordered. sd1 17:58 Detain Pt Until Medically/PFS Cleared ordered. sd1 17:59 Acetaminophen Level Ordered. EDMS 17:59 Basic Metabolic Profile Ordered. EDMS 17:59 Complete Blood Count Ordered. EDMS 17:59 Drug Eval Toxicology ED Only Ordered. EDMS 17:59 Ethyl Alcohol (ethanol) Ordered. EDMS 17:59 Liver Profile Ordered. EDMS 18:00 Salicylate Level Ordered. EDMS 18:00 Thyroid Stimulating Hormone Ordered. EDMS 18:49 Other: Suicide note was scanned into [employer] and attached to record. jl 18:52 Complete Blood Count Reviewed. sd1 18:52 Drug Eval Toxicology ED Only Reviewed. sd1 18:54 UA Ordered. EDMS 18:54 Urine Culture Ordered. EDMS 19:15 Consult PFS/PSA/Sr. Strategic Sourcing Manager complete. ac 19:15 Consult PFS/PSA/Sr. Strategic Sourcing Manager: Patient's case requires discussion with on-call ac Psychiatrist complete. 19:36 PSA/PFS to call Nursing Radiology Physician Assistant, to enter patient data on [facility] Safe Act if patient jfb involuntarily admitted or transferred for SI or HI complete. 20:45 SEROquel 200 mg PO once ordered. rw1 20:45 Financial registration complete. gjb 20:48 Acetaminophen Level Reviewed. cs11 20:48 Basic Metabolic Profile Reviewed. cs11 20:48 Liver Profile Reviewed. cs11 20:48 Salicylate Level Reviewed. cs11 20:48 Thyroid Stimulating Hormone Reviewed. cs11 20:48 UA Reviewed. cs11 20:48 Ethyl Alcohol (ethanol) Reviewed. cs11 20:50 Trimethoprim-Sulfamethoxazole 160 mg-800 mg (DS) 1 tabs PO once ordered. cs11 21:12 [facility] Payment Agreement was scanned into [employer] and attached to record. gjb 21:15 [facility] Legal paperwork was scanned into [employer] and attached to record. jfb 11/13 10:59 T-Sheet-- Draft Copy was scanned into [employer] and attached to record. gb Administered Medications: 11/12 20:49 Drug: SEROquel 200 mg Route: PO; rw1 21:47 Follow up: Response: No Adverse Reaction rw1 21:04 Drug: Trimethoprim-Sulfamethoxazole 1 tabs [sulfamethoxazole 800 mg-trimethoprim 160 mg rw1 tablet (1 tabs)] Route: PO; 21:47 Follow up: Response: No Adverse Reaction rw1 Signatures: Dispatcher [employer] Amanda Lemon MD MD sd1 Higinio Amor, PSA PSA Kam Welch, PSA PSA Shawna Muniz, Reg Reg gb Kai Jaramillo,PATTERN TECHNICIAN PATTERN TECHNICIAN rw1 Irais Hay, PSA PSA jfShakeel Guidry, DO cs11 Barney BrewsterRN RN mb9 Celia Casas The chart was reviewed and I authenticate all verbal orders and agree with the evaluation and treatment provided.Corrections: (The following items were deleted from the chart) 20:45 17:54 Home Meds: Seroquel 100 mg Oral tab nightly; mb9 rw1 Attachments: 21:12 [facility] Payment Agreement gjb 11/13 10:59 T-Sheet-- Draft Copy Chart Complete MTDD
== END 2016-11-12 21:52 ==
LOC: M ED 17:35
DX: R45.851 Suicidal ideations (principal); F41.9 Anxiety disorder, unspecified; G47.00 Insomnia, unspecified; Z87.442 Personal history of urinary calculi; Z90.89 Acquired absence of other organs; F17.200 Nicotine dependence, unspecified, uncomplicated; Z79.899 Other long term (current) drug therapy; Z88.5 Allergy status to narcotic agent

== ENCOUNTER → 2016-11-30 | Outpatient (CLI) | payer OTHER | LOC: M OUTALCOH 07:57 | PROVIDERS: ATTEND Psychiatry & Neurology Psychiatry | DX: F11.20 Opioid dependence, uncomplicated (principal); F13.20 Sedative, hypnotic or anxiolytic dependence, uncomplicated ==

== ENCOUNTER 2016-12-26 08:00 | Outpatient (RCR) | payer OTHER | END 2017-01-06 | LOC: M OUTALCOH 08:00 | PROVIDERS: ATTEND Psychiatry & Neurology Psychiatry | DX: F11.20 Opioid dependence, uncomplicated (principal); F13.20 Sedative, hypnotic or anxiolytic dependence, uncomplicated ==

== ENCOUNTER → 2017-10-16 | Outpatient (CLI) | payer OTHER | LOC: M OUTALCOH 12:47 | DX: F11.20 Opioid dependence, uncomplicated (principal); F13.20 Sedative, hypnotic or anxiolytic dependence, uncomplicated ==

== ENCOUNTER → 2018-01-23 | Outpatient (CLI) | payer OTHER | LOC: M LRY 13:22 | DX: R93.5 Abnormal findings on diagnostic imaging of other abdominal regions, including retroperitoneum (principal); R10.9 Unspecified abdominal pain; Z87.442 Personal history of urinary calculi | CPT/HCPCS: 71100 ==

== ENCOUNTER → 2018-04-25 | Outpatient (REF) | payer OTHER ==
[2018-04-25 23:52] LABS: CHLAMYDIA DNA AMPLIFICATION NEGATIVE (NEGATIVE); GC DNA AMPLIFICATION NEGATIVE (NEGATIVE)
== END ==
LOC: M SFHCLERA 13:16
DX: R30.0 Dysuria (principal)

== ENCOUNTER → 2018-04-25 | Outpatient (CLI) | payer OTHER | LOC: M LRY 13:47 | DX: M54.9 Dorsalgia, unspecified (principal) | CPT/HCPCS: 74018 ==

== ENCOUNTER 2018-09-17 15:04 | Emergency (ER) | payer OTHER ==
[2018-09-17] MEDS ORDERED: IPRATROPIUM 0.5MG/ALBUTEROL 2.5MG INH SOL UD 3ML (DUONEB)(J7620) NEB (16:30)
== END 2018-09-17 16:28 | disposition home or self-care (01) ==
LOC: M ED 15:04
DX: M54.9 Dorsalgia, unspecified (principal)
CPT/HCPCS: 99283

== ENCOUNTER 2018-10-27 12:47 | Emergency (ER) | payer OTHER ==
[~2018-10-27] VITALS: Ht 185.4 cm; Wt 64.5 kg
[~2018-10-27 12:47] MED LIST: BUPR300T34 PO; GABA-843 PO; NALT50TA4 PO; NAPR-50 PO; PROP10TA56 PO; QUET1TAB9 PO; SOMA350T PO
[2018-10-27] MEDS ORDERED: XANA0.25 PO (12:58)
[2018-10-27] MEDS ORDERED: WELLTAB38 PO (12:58)
[2018-10-27 13:42] LABS: HEMATOCRIT 43.6 % (42.0-52.0); HEMOGLOBIN 15.3 g/dl (13.5-17.5); MEAN CORPUSCULAR HEMOGLOBIN 31.4 pg (27.0-33.0); MEAN CORPUSCULAR HGB CONC 35.1 g/dl (32.0-36.5); MEAN CORPUSCULAR VOLUME 89.3 fl (80.0-96.0); PLATELET COUNT, AUTOMATED 213 10^3/uL (150-450); RED BLOOD COUNT 4.88 10^6/uL (4.30-6.10); WHITE BLOOD COUNT 9.8 10^3/uL (4.0-10.0)
[2018-10-27 14:03] LABS: AMPHETAMINES LEVEL URINE NEGATIVE (NEGATIVE); BARBITURATES URINE NEGATIVE (NEGATIVE); BENZODIAZEPINES URINE POSITIVE (NEGATIVE); CANNABINOIDS URINE NEGATIVE (NEGATIVE); COCAINE METABOLITE URINE NEGATIVE (NEGATIVE); METHADONE URINE NEGATIVE (NEGATIVE); OPIATES URINE NEGATIVE (NEGATIVE); PHENCYCLIDINE URINE NEGATIVE (NEGATIVE)
[2018-10-27 14:32] LABS: ACETAMINOPHEN LEVEL < 2.0 UG/ML (10.0-30.0); ALBUMIN 4.2 GM/DL (3.2-5.2); ALT/SGPT 20 U/L (12-78); BILIRUBIN,DIRECT 0.1 MG/DL (0.0-0.2); BILIRUBIN,TOTAL 0.7 MG/DL (0.2-1.0); BLOOD UREA NITROGEN 29 MG/DL (7-18); CALCIUM LEVEL 8.9 MG/DL (8.5-10.1); CARBON DIOXIDE LEVEL 29 MEQ/L (21-32); CHLORIDE LEVEL 100 MEQ/L (98-107); CREATININE FOR GFR 1.09 MG/DL (0.70-1.30); ETHYL ALCOHOL (ETHANOL) < 0.003 % (0.000-0.010); GLOMERULAR FILTRATION RATE > 60.0 (>60); GLUCOSE, FASTING 79 MG/DL (70-100); SALICYLATE LEVEL 1.7 MG/DL (5.0-30.0); SODIUM LEVEL 134 MEQ/L (136-145); TOTAL PROTEIN 7.2 GM/DL (6.4-8.2)
[2018-10-27 16:50] VITALS: BP 138/93
--- NOTE | 2018-10-28 09:22 | ECGEPIP ---
Stationary ECG Study [facility] - ED Test Date: 2018-10-27 Pat Name: ERUM LAU Department: Room: - Gender: M [employer] Office Manager: TC : 1975 Requested By: ROHINI Brock Order Number: [id number] Reading MD: Gena Toure Measurements Intervals [place] Rate: 76 P: 66 CA: 188 QRS: 49 QRSD: 79 T: 84 QT: 358 QTc: 404 Interpretive Statements SINUS RHYTHM NONSPECIFIC T-WAVE ABNORMALITY NO OLD ECG FOR COMPARISON Electronically Signed On 10-28-2018 9:22:17 EST by Gena Toure
== END 2018-10-27 16:52 | disposition home or self-care (01) ==
LOC: EDBD 12:47 → M ED 12:47
DX: T42.4X2A Poisoning by benzodiazepines, intentional self-harm, initial encounter (principal); X58.XXXA Exposure to other specified factors, initial encounter; Y92.89 Other specified places as the place of occurrence of the external cause; G47.00 Insomnia, unspecified; Z87.442 Personal history of urinary calculi; F17.200 Nicotine dependence, unspecified, uncomplicated; Z88.5 Allergy status to narcotic agent; Z79.899 Other long term (current) drug therapy; Z79.1 Long term (current) use of non-steroidal anti-inflammatories (NSAID)
CPT/HCPCS: 80048; 80076; 80307; 84443; 85027; 93005; 99284; G0480